=== PATIENT | female | born 1995 | race Caucasian/White ===

== ENCOUNTER 2024-05-09 02:39 | Inpatient (IN) | payer BC ==
[2024-05-09] VITALS (9 sets, daily range): BP systolic 121–136; BP diastolic 62–84; O2SAT 98
[~2024-05-09] VITALS: Ht 165.1 cm; Wt 86.2 kg
[2024-05-09] MEDS ORDERED: PRENTAB9 PO (03:04)
[2024-05-09] MEDS ORDERED: METHYLERGONOVINE MALEATE 0.2MG/ML 1ML VIAL IM PRN (03:45)
[2024-05-09] MEDS ORDERED: OXYTOCIN DRIP 30 UNITS in IV 1 EA IV PRN (03:45)
[2024-05-09] MEDS ORDERED: CARBOPROST TROMETHAMINE 250 MCG/ML AMP IM PRN (03:45)
[2024-05-09] MEDS ORDERED: TRANEXAMIC ACID INJection 1,000 MG in NS 100 ML IV PRN (03:45)
[2024-05-09] MEDS: LACTATED RINGER'S 1000 ML IV PRN (04:11)
[2024-05-09 04:18] LABS: HEMATOCRIT 30.6 % (36.0-47.0); HEMOGLOBIN 9.7 g/dl (12.0-15.5); MEAN CORPUSCULAR HEMOGLOBIN 26.1 pg (27.0-33.0); MEAN CORPUSCULAR HGB CONC 31.7 g/dl (32.0-36.5); MEAN CORPUSCULAR VOLUME 82.5 fl (80.0-96.0); PLATELET COUNT, AUTOMATED 270 10^3/uL (150-450); RED BLOOD COUNT 3.71 10^6/uL (4.00-5.40); WHITE BLOOD COUNT 10.2 10^3/uL (4.0-10.0)
[2024-05-09 05:24] LABS: HEPATITIS C VIRUS ABY INDEX < 0.02 INDEX (<0.8)
[2024-05-09] MEDS ORDERED: OXYTOCIN 30UNITS IN 0.9% NaCl 500ML IV BAG As Ordered ONE (05:50)
[2024-05-09] MEDS ORDERED: LR 500 ML IV PRN (06:10)
[2024-05-09] MEDS ORDERED: ePHEDrine SULFATE 25 MG/5 ML(5MG/ML) SYRINGE IVP PRN (06:10)
[2024-05-09] MEDS ORDERED: diphenhydrAMINE 50MG/ML VIAL IV PRN (06:10)
[2024-05-09] MEDS ORDERED: FENTANYL/ROPIVACAINE/NACL BAG 100 ML EPIDURAL SCH (06:10)
[2024-05-09] MEDS ORDERED: NALOXONE INJ 0.4MG/1ML VIAL IV PRN (06:10)
[2024-05-09] MEDS ORDERED: ONDANSETRON 4MG 2ML VIAL IV PRN (06:10)
[2024-05-09] MEDS ORDERED: EPIDURAL/PCA KEYS XX PRN (06:10)
[2024-05-09] MEDS ORDERED: LIDOCAINE 1% MDV 20ML VIAL As Ordered ONE (06:15)
[2024-05-09] MEDS: OXYTOCIN DRIP 30 UNITS in IV 1 EA IV PRN (06:19)
[2024-05-09] MEDS: LIDOCAINE 1% MDV 20ML VIAL SC ONE (06:22)
[2024-05-09] MEDS ORDERED: DOCUSATE SODIUM 100MG CAPSULE PO PRN (07:15)
[2024-05-09] MEDS ORDERED: IBUPROFEN 600MG TAB PO PRN (07:15)
[2024-05-09] MEDS ORDERED: METHYLERGONOVINE MALEATE 0.2 MG TAB PO PRN (07:15)
[2024-05-09] MEDS ORDERED: ACETAMINOPHEN 500 MG TAB PO PRN (07:15)
[2024-05-09] MEDS ORDERED: DIBUCAINE 1% OINTMENT 30GM TOP PRN (07:15)
[2024-05-09] MEDS: RHO(D) IMMUNE GLOBULIN/MALTOSE 500MCG(2500IU)/2.2ML VIAL (WINRHO) IM SCH (09:02)
[2024-05-09] MEDS: PRENATAL VITAMINS CHEWABLE TABLET PO SCH (09:36)
[2024-05-10 05:58] VITALS: O2SAT 99
[2024-05-10 06:56] LABS: HEMOGLOBIN 9.3 g/dl (12.0-15.5); MEAN CORPUSCULAR VOLUME 83.8 fl (80.0-96.0); PLATELET COUNT, AUTOMATED 246 10^3/uL (150-450); RED BLOOD COUNT 3.58 10^6/uL (4.00-5.40); WHITE BLOOD COUNT 10.9 10^3/uL (4.0-10.0)
[2024-05-10] MEDS ORDERED: IBUP-1022 PO (15:24)
[2024-05-10] MEDS ORDERED: ACET-683 PO (15:24)
[2024-05-11] MEDS ORDERED: MEASLES,MUMPS,RUBELLA VACCINE INJ (MMR-II) SC.IMMUN ONE (09:00)
== END 2024-05-10 18:02 | disposition home or self-care (01) | DRG 560 ==
LOC: M LDO 02:39 → M LDI 03:41 → M OBS 08:45
PROVIDERS: ADMIT Obstetrics & Gynecology; ATTEND Obstetrics & Gynecology
PROC: 10E0XZZ Delivery of Products of Conception, External Approach (ICD-10-PCS; principal; 2024-05-09)
PROC: 0HQ9XZZ Repair Perineum Skin, External Approach (ICD-10-PCS; 2024-05-09)
DX: O34.211 Maternal care for low transverse scar from previous cesarean delivery (principal); O70.0 First degree perineal laceration during delivery; Z3A.39 39 weeks gestation of pregnancy; Z37.0 Single live birth